=== PATIENT | female | born 1985 | race Caucasian/White ===

== ENCOUNTER 2019-05-08 18:55 | Emergency (ER) | payer OTHER ==
[~2019-05-08] VITALS: Ht 170.2 cm; Wt 65.7 kg
[2019-05-08 19:05] VITALS: BP 120/71
[2019-05-08] MEDS ORDERED: estroven (19:29)
[2019-05-08] MEDS ORDERED: OMEP20TA63 PO (19:29)
[2019-05-08] MEDS ORDERED: concerta (19:29)
--- NOTE | 2019-05-08 19:33 | PHYS DOC ---
Adult General Chief Complaint Chief Complaint: VAGINAL PROBLEM HPI HPI Patient is a 33 year old female who presents with complaint of vaginal bleeding and cramping. The patient states that she thinks that her IUD has dislodged and is currently stuck in the vaginal cavity. States that she first noticed this today. She called her GAS ENGINE OPERATOR who instructed her to come to the emergency department for further evaluation. Denies any associated fever, vaginal discharge, or nausea. He is having in her mid uterine cramping. States that she would like assistance with removal of her IUD as she is unable to grasp the IUD strings. Review of Systems Review of Systems Constitutional: Denies fever or chills [] Eyes: Denies change in visual acuity, redness, or eye pain [] HENT: Denies nasal congestion or sore throat [] Respiratory: Denies cough or shortness of breath [] Cardiovascular: Denies chest pain or edema[] GI: Denies abdominal pain, nausea, vomiting, bloody stools or diarrhea [] : Vaginal bleeding, uterine cramping[] Musculoskeletal: Denies back pain or joint pain [] Integument: Denies rash or skin lesions [] Neurologic: Denies headache, focal weakness or sensory changes [] All other systems were reviewed and found to be within normal limits, except as documented in this note. Physical Exam Physical Exam Constitutional: Well developed, well nourished, no acute distress, non-toxic appearance. [] HENT: Normocephalic, atraumatic, bilateral external ears normal, oropharynx moist, no oral exudates, nose normal. [] Eyes: PERRLA, EOMI, conjunctiva normal, no discharge. [] Neck: Normal range of motion, no tenderness, supple, no stridor. [] Cardiovascular:Heart rate regular rhythm, no murmur [] Lungs & Thorax: Bilateral breath sounds clear to auscultation [] Abdomen: Bowel sounds normal, soft, no tenderness, no masses, no pulsatile masses. : Normal external exam, minimal blood clots present in vaginal canal, IUD strings visualized[] Skin: Warm, dry, no erythema, no rash. [] Back: No tenderness, no CVA tenderness. [] Extremities: No tenderness, no cyanosis, no clubbing, ROM intact, no edema. [] Neurologic: Alert and oriented X 3, normal motor function, normal sensory function, no focal deficits noted. [] Current Patient Data Lab Results Not performed EKG EKG Not performed[] Radiology/Procedures Radiology/Procedures Indication: Dislodged IUD Procedure: The area of the foreign body was visualized under speculum exam. After identification of the IUD strings, these were grasped using curved Cora forceps, and IUD was successfully removed from the vaginal cavity and disposed. The patient tolerated the procedure without difficulty. Complications: None[] Course & Med Decision Making Course & Med Decision Making Pertinent Labs and Imaging studies reviewed. (See chart for details) IUD was successfully removed in the emergency department. Patient appears well and in no acute distress. Vital signs are stable. Advised patient to abstain from any sexual intercourse until follow-up with GAS ENGINE OPERATOR in one week area and recommended return to the emergency department for any worsening symptoms per the patient was understanding and in agreement with treatment plan.[] Dragon Disclaimer Dragon Disclaimer This electronic medical record was generated, in whole or in part, using a voice recognition dictation system. Departure Departure: Impression: Primary Impression: Encounter for IUD removal Disposition: 01 HOME, SELF-CARE Condition: IMPROVED Referrals: PCP,UNKNOWN (PCP) Patient Instructions: Foreign Body Additional Instructions: Follow-up with your GAS ENGINE OPERATOR in the next 5-7 days for reevaluation. Abstain from any sexual intercourse at this time until you have followed up with your GAS ENGINE OPERATOR. Return to the emergency department for any worsening symptoms. BERNY VANEGAS MD May 08, 2019 19:33
== END 2019-05-08 19:39 | disposition home or self-care (01) ==
LOC: ER 18:55
DX: T83.32XA Displacement of intrauterine contraceptive device, initial encounter (principal); N93.9 Abnormal uterine and vaginal bleeding, unspecified; Z30.432 Encounter for removal of intrauterine contraceptive device
CPT/HCPCS: 99284

== ENCOUNTER 2020-01-15 12:46 | Emergency (ER) | payer OTHER ==
[~2020-01-15] VITALS: Ht 170.2 cm; Wt 65.7 kg
[~2020-01-15 12:46] MED LIST: OMEP20TA63 PO; concerta; estroven
[2020-01-15] MEDS ORDERED: methylPREDNISolone SOD SUCC PF 125 MG/2 ML VIAL. IM ONE (13:30)
[2020-01-15] MEDS ORDERED: FAMOTIDINE 20 MG TABLET PO ONE (13:30)
[2020-01-15] MEDS ORDERED: PRED20TA PO (15:33)
[2020-01-15] MEDS ORDERED: FAMO-63 PO (15:33)
--- NOTE | 2020-01-15 15:33 | PHYS DOC ---
Past History Past Medical History: Other Additional Past Medical Histor: ADHD Past Surgical History: No Surgical History Alcohol Use: None General Adult EDM: Chief Complaint: ALLERGIC REACTION HPI: HPI: Patient is a 33-year-old female who was [facility] to allergic reaction to a flu shot. Patient was there to had a flu shot, she had flu shot in the past without a problem. 15 minutes after the flu shot she still having numbness and tingling sensation on her right upper extremity and right side of her face. Patient was given 50 mg of Benadryl at the clinic, she then started feeling tingling and numbness on the left side of her upper extremity so EMS were called to take her here for evaluation. Patient denies any headache, no blurred vision, no slurred speech. Patient says she was treated for sinusitis a week ago, denies any nasal congestion or any facial pain. Review of Systems: Review of Systems: Constitutional: Denies fever or chills Eyes: Denies change in visual acuity HENT: Denies nasal congestion or sore throat Respiratory: Denies cough or shortness of breath Cardiovascular: Denies chest pain or edema GI: Denies abdominal pain, nausea, vomiting, bloody stools or diarrhea : Denies dysuria Musculoskeletal: Denies back pain or joint pain Integument: Denies rash Neurologic: Denies headache, focal weakness , positive for intermittent numbness and tingling sensation on right side of face, upper extremity. Endocrine: Denies polyuria or polydipsia Lymphatic: Denies swollen glands Psychiatric: Denies depression or anxiety Heart Score: Risk Factors: Risk Factors: DM, Current or recent (<one month) smoker, HTN, HLP, family history of CAD, obesity. Risk Scores: Score 0 - 3: 2.5% MACE over next 6 weeks - Discharge Home Score 4 - 6: 20.3% MACE over next 6 weeks - Admit for Clinical Observation Score 7 - 10: 72.7% MACE over next 6 weeks - Early Invasive Strategies Current Medications: Current Meds: Current Medications Medications (Trade) Dose Ordered Sig/Charli Start Time Stop Time Status Last Admin Dose Admin Famotidine (Pepcid) 20 mg 1X ONCE 01/15/20 13:30 01/15/20 13:31 DC 01/15/20 13:43 20 MG Methylprednisolone Sodium Succinate (SOLU-Medrol 125MG VIAL) 125 mg 1X ONCE 01/15/20 13:30 01/15/20 13:31 DC 01/15/20 13:42 125 MG Allergies: Allergies: Allergies Coded Allergies Type Severity Reaction Last Updated Verified No Known Drug Allergies 05/08/19 No Physical Exam: PE: Constitutional: Well developed, well nourished, no acute distress, non-toxic appearance. [] HENT: Normocephalic, atraumatic, bilateral external ears normal, oropharynx moist, no oral exudates, nose normal. [] Eyes: PERRLA, EOMI, conjunctiva normal, no discharge. [] Neck: Normal range of motion, no tenderness, supple, no stridor. [] Cardiovascular:Heart rate regular rhythm, no murmur [] Lungs & Thorax: Bilateral breath sounds clear to auscultation [] Abdomen: Bowel sounds normal, soft, no tenderness, no masses, no pulsatile masses. [] Skin: Warm, dry, no erythema, no rash. [] Back: No tenderness, no CVA tenderness. [] Extremities: No tenderness, no cyanosis, no clubbing, ROM intact, no edema. [] Neurologic: Alert and oriented X 3, normal motor function, normal sensory function, no focal deficits noted. [] Psychologic: Affect normal, judgement normal, mood normal. [] Current Patient Data: Vital Signs: Current Medications Medications (Trade) Dose Ordered Sig/Charli Route PRN Reason Start Time Stop Time Status Last Admin Dose Admin Methylprednisolone Sodium Succinate (SOLU-Medrol 125MG VIAL) 125 mg 1X ONCE IM 01/15/20 13:30 01/15/20 13:31 DC 01/15/20 13:42 Famotidine (Pepcid) 20 mg 1X ONCE PO 01/15/20 13:30 01/15/20 13:31 DC 01/15/20 13:43 EKG: EKG: [] Radiology/Procedures: Radiology/Procedures: [] Course & Med Decision Making: Course & Med Decision Making Pertinent Labs and Imaging studies reviewed. (See chart for details) Patient is a 34-year-old female who was evaluated in the ER due to allergic reaction to influenza vaccination. Patient was given medication in the ER, she was observed for 2 and half hour, she felt much better. Patient was discharged in stable condition. Dragon Disclaimer: Dragon Disclaimer: This electronic medical record was generated, in whole or in part, using a voice recognition dictation system. Departure Departure: Impression: Primary Impression: Allergic reaction caused by a drug Disposition: 01 HOME/RESIDENCE PRIOR TO ADM Condition: IMPROVED Referrals: OLGA CROWE (PCP) please follow up with your doctor next week as needed Patient Instructions: Drug Allergy Additional Instructions: Thank you for visiting our Emergency Department. We appreciate you trusting us with your care. If any additional problems come up don't hesitate to return to visit us. Please follow up with your primary care provider so they can plan additional care if needed and know about the problem that you had. If symptoms worsen come back to the Emergency Department. Any concerning symptoms that start such as chest pain, shortness of air, weakness or numbness on one side of the body, running high fevers or any other concerning symptoms return to the ER. Scripts Famotidine (PEPCID) 20 Mg Tablet 1 TAB PO DAILY for allergy for 5 Days, #5 TAB 3 Refills Prov: PO ROGER DO 01/15/20 Prednisone (PREDNISONE) 20 Mg Tablet 1 TAB PO DAILY for allergy, #5 TAB Prov: PO ROGER DO 01/15/20 PO ROGER DO Jan 15, 2020 15:33
[2020-01-15 15:44] VITALS: BP 111/63
== END 2020-01-15 15:44 | disposition home or self-care (01) ==
LOC: ER 12:46
DX: R20.2 Paresthesia of skin (principal); T50.B95A Adverse effect of other viral vaccines, initial encounter; Y92.89 Other specified places as the place of occurrence of the external cause
CPT/HCPCS: 96372; 99283; J2930